=== PATIENT | female | born 1955 | race African-American/Black ===

== ENCOUNTER 2017-09-04 18:25 | Emergency (ER) | payer OTHER, SELFPAY ==
--- NOTE | 2017-09-04 18:33 | ED_ITS ---
HPI - Epistaxis <MARSHAL Stevenson - Last Filed: 09/04/17 22:13> General Chief complaint: Nasal Problem Stated complaint: Nose Bleed Time Seen by Provider: 09/04/17 18:33 History of Present Illness HPI Narrative: 61-year-old female with history of renal failure here for complaint of right-sided bloody nose that started earlier today. She was at dialysis and she accidentally bumped her nose while she was trying to move some of the tubing while she was at dialysis starting a nosebleed. She states that she had similar symptoms 1 week ago and was treated at ENT in which they cauterized a vessel in her right nares to stop the bleed. She denies being on any blood thinners. She denies any other symptoms. MD complaint: epistaxis Related Data Previous Rx's Medication Instructions Recorded oxycodone 5 mg PO Q6H PRN #10 cap 09/04/17 Allergies Allergy/AdvReac Type Severity Reaction Status Date / Time amiodarone Allergy Verified 09/04/17 21:16 amlodipine Allergy Verified 09/04/17 21:16 atenolol Allergy Verified 09/04/17 21:16 Review of Systems <MARSHAL Stevenson - Last Filed: 09/04/17 22:13> Constitutional Denies chills, Denies fever(s), Denies lethargy and Denies weakness Eyes Denies change in vision, Denies eye discharge, Denies irritation and Denies loss of vision ENT Ears, Nose, Mouth, and Throat: Reports epistaxis Cardiovascular Denies chest pain, Denies irregular heart rhythm, Denies lightheadedness, Denies palpitations, Denies dyspnea, Denies dyspnea on exertion and Denies orthopnea Respiratory Denies cough, Denies dyspnea, Denies dyspnea on exertion and Denies wheezing Gastrointestinal Gastrointestinal: Denies abdominal pain, Denies change in bowel habits, Denies diarrhea, Denies nausea and Denies vomiting Genitourinary Denies hematuria, Denies flank pain, Denies urinary incontinence and Denies urinary urgency Musculoskeletal Denies back pain, Denies muscle weakness, Denies numbness and Denies tingling Integumentary/Breasts Denies pruritus, Denies erythema, Denies rash and Denies wounds Neurologic Denies confusion, Denies loss of vision, Denies numbness, Denies tingling and Denies weakness Psychiatric Denies anxiety, Denies confusion, Denies depression, Denies homicidal ideation and Denies suicidal ideation Endocrine Denies palpitations Hematologic/Lymphatic Denies easy bruising Allergic/Immunologic Denies wheezing Exam <MARSHAL Stevenson - Last Filed: 09/04/17 22:13> Initial Vital Signs Initial Vital Signs: Vital Signs Pulse Rate 67 09/04/17 19:17 Respiratory Rate 24 09/04/17 19:17 Blood Pressure 159/97 H 09/04/17 19:17 Pulse Oximetry 97 09/04/17 19:17 Const General: cooperative and well developed Nutritional Appearance: well nourished Orientation: alert, awake, oriented x3 and not confused HENMT Nose: external nose normal and epistaxis Mouth: oral mucosae normal and moist mucous membranes Eyes Conjunctivae: conjunctivae normal Sclera: sclerae normal Pupils: PERRL EOM: EOM intact bilaterally Neck Neck: normal visual inspection Resp Effort & Inspection: normal respiratory effort, able to speak in complete sentences, no respiratory distress and no use of accessory muscles Auscultation: clear to auscultation bilaterally, no rales, no rhonchi and no wheezes Cardio Rate: regular rate Rhythm: regular rhythm Heart Sounds: no click, no gallops, no murmurs and no rubs Pulses: normal peripheral pulses Skin General: no rashes or lesions noted, No jaundice and No petechiae <Oskar Clifford MD - Last Filed: 09/05/17 05:55> Initial Vital Signs Initial Vital Signs: Vital Signs Pulse Rate 67 09/04/17 19:17 Respiratory Rate 24 09/04/17 19:17 Blood Pressure 159/97 H 09/04/17 19:17 Pulse Oximetry 97 09/04/17 19:17 Course <MARSHAL Stevenson - Last Filed: 09/04/17 22:13> Orders Ordered: Discontinued Medications Hydromorphone HCl (Dilaudid) 1 mg IM NOW ONE Stop: 09/04/17 20:19 Last Admin: 09/04/17 20:41 Dose: Hydromorphone HCl (Dilaudid) 0.5 mg IV NOW ONE Stop: 09/04/17 20:22 Last Admin: 09/04/17 20:27 Dose: 0.5 mg Vital Signs - 8 hr 09/04/17 19:17 09/04/17 21:25 Temperature 98.0 F Pulse Rate 67 79 Respiratory Rate 24 17 Blood Pressure 161/93 H Blood Pressure [Right Arm] 159/97 H Pulse Oximetry 97 93 <Oskar Clifford MD - Last Filed: 09/05/17 05:55> Orders Ordered: Discontinued Medications Hydromorphone HCl (Dilaudid) 1 mg IM NOW ONE Stop: 09/04/17 20:19 Last Admin: 09/04/17 20:41 Dose: Hydromorphone HCl (Dilaudid) 0.5 mg IV NOW ONE Stop: 09/04/17 20:22 Last Admin: 09/04/17 20:27 Dose: 0.5 mg Vital Signs - 8 hr 09/04/17 19:17 09/04/17 21:25 Temperature 98.0 F Pulse Rate 67 79 Respiratory Rate 24 17 Blood Pressure 161/93 H Blood Pressure [Right Arm] 159/97 H Pulse Oximetry 97 93 MDM - Epistaxis <MARSHAL Stevenson - Last Filed: 09/04/17 22:13> Lab Data Result diagrams: 09/04/17 19:32 09/04/17 19:32 Lab Results 09/04/17 09/04/17 09/04/17 Range/Units 19:32 19:32 19:32 WBC 5.0 (4.5-11.0) X10^3/uL RBC 2.93 L (4.0-5.2) X10^6/uL Hgb 9.5 L (12.0-16.0) g/dL Hct 28.4 L (36-46) % MCV 96.9 (80-100) fL MCH 32.3 (26-34) PG MCHC 33.3 (30-36) % RDW 17.6 H (11.6-14.8) % Plt Count 104 L (150-400) X10^3/uL Neut % (Auto) 67.9 (50-75) % Lymph % (Auto) 19.6 L (25-40) % Nelson % (Auto) 10.0 (3-14) % Eos % (Auto) 1.5 L (2-4) % Baso % (Auto) 1.0 (0-2) % Neut # (Auto) 3400 (0912-3104) /uL PT 13.3 H (10.1-12.7) SECONDS INR 1.2 (0.9-1.3) Sodium 140 (137-145) mmol/L Potassium 3.9 (3.4-5.1) mmol/L Chloride 95 L (98-107) mmol/L Carbon Dioxide 25 (22-32) mmol/L BUN 33 H (7-17) mg/dL Creatinine 3.40 H (0.52-1.04) mg/dL Estimated GFR 13.7 L (>60) mL/min BUN/Creatinine Ratio 9.7 (6-22) Glucose 101 (80-110) mg/dL Calcium 8.2 L (8.4-10.2) mg/dL Total Bilirubin 1.1 (0.2-1.3) mg/dL AST 19 (14-36) IU/L ALT 25 (9-52) IU/L Alkaline Phosphatase 109 (38-126) U/L Total Protein 7.3 (6.3-8.2) g/dL Albumin 4.4 (3.5-5.0) g/dL Globulin 2.9 (1.7-4.1) g/dL Albumin/Globulin Ratio 1.5 (1.0-2.8) MDM Narrative Medical decision making narrative: Right sided epistaxis was unable to determine whether was posterior or anterior. Rhino rocket was inserted to the right nares and was inflated. Shortly afterwards epistaxis stopped. She does report some discomfort to the right nares area. She was given IV Dilaudid. P.o. hydrocodone is prescribed for discomfort. She is to follow up with ENT in the next few days for re-evaluation. For any worsening symptoms return to the emergency room. She is instructed not to blow her nose. <Oskar Clifford MD - Last Filed: 09/05/17 05:55> Lab Data Lab Results 09/04/17 09/04/17 09/04/17 Range/Units 19:32 19:32 19:32 WBC 5.0 (4.5-11.0) X10^3/uL RBC 2.93 L (4.0-5.2) X10^6/uL Hgb 9.5 L (12.0-16.0) g/dL Hct 28.4 L (36-46) % MCV 96.9 (80-100) fL MCH 32.3 (26-34) PG MCHC 33.3 (30-36) % RDW 17.6 H (11.6-14.8) % Plt Count 104 L (150-400) X10^3/uL Neut % (Auto) 67.9 (50-75) % Lymph % (Auto) 19.6 L (25-40) % Nelson % (Auto) 10.0 (3-14) % Eos % (Auto) 1.5 L (2-4) % Baso % (Auto) 1.0 (0-2) % Neut # (Auto) 3400 (3668-0505) /uL PT 13.3 H (10.1-12.7) SECONDS INR 1.2 (0.9-1.3) Sodium 140 (137-145) mmol/L Potassium 3.9 (3.4-5.1) mmol/L Chloride 95 L (98-107) mmol/L Carbon Dioxide 25 (22-32) mmol/L BUN 33 H (7-17) mg/dL Creatinine 3.40 H (0.52-1.04) mg/dL Estimated GFR 13.7 L (>60) mL/min BUN/Creatinine Ratio 9.7 (6-22) Glucose 101 (80-110) mg/dL Calcium 8.2 L (8.4-10.2) mg/dL Total Bilirubin 1.1 (0.2-1.3) mg/dL AST 19 (14-36) IU/L ALT 25 (9-52) IU/L Alkaline Phosphatase 109 (38-126) U/L Total Protein 7.3 (6.3-8.2) g/dL Albumin 4.4 (3.5-5.0) g/dL Globulin 2.9 (1.7-4.1) g/dL Albumin/Globulin Ratio 1.5 (1.0-2.8) Discharge Plan Departure Patient Disposition: Home, Self-Care Clinical Impression: Epistaxis Discharge Date/Time: 09/04/17 21:20 Interventions: ED Discharge Assessment Last Done: 09/04/17 21:25 Instructions: DI for Nosebleed Activity Restrictions/Additional Instructions: Laboratory results indicate slightly low platelets most likely due to dialysis and renal failure. Rhino rocket was inserted into the right nostril and inflated to stop the bleeding. Follow up with ENT in approximately 3 days. Hydrocodone is prescribed to help with discomfort use as directed. Follow up with her primary care provider. Return emergency room for any worsening symptoms. Do not blow his nose as to not dislodge the clot. Prescriptions: New oxycodone 5 mg capsule 5 mg PO Q6H PRN (Reason: pain) Qty: 10 RF: 0 Referrals: [facility] [Provider Group] <Oskar Clifford MD - Last Filed: 09/05/17 05:55> Cosign ED Attending Beronica Attestation: I was immediately available in the department for consultation. Documentation has been reviewed. I agree with assessment and plan.
[2017-09-04 19:17] VITALS: BP 159/97; PULSE 67; RESP 24; O2SAT 97
[2017-09-04 19:43] LABS: Add Manual Diff / Slide Review NO; Eosinophils Percent Auto 1.5 % (2-4); Hematocrit 28.4 % (36-46); Hemoglobin 9.5 g/dL (12.0-16.0); Lymphocytes Percent Auto 19.6 % (25-40); Mean Corpuscular HGB Conc 33.3 % (30-36); Mean Corpuscular Hemoglobin 32.3 PG (26-34); Mean Corpuscular Volume 96.9 fL (80-100); Neutrophils Absolute Auto 3400 /uL (3000-5900); Neutrophils Percent Auto 67.9 % (50-75); Platelet Count 104 X10^3/uL (150-400); Red Blood Cell Count 2.93 X10^6/uL (4.0-5.2); Red Cell Distribution Width 17.6 % (11.6-14.8)
[2017-09-04 19:47] LABS: INR 1.2 (0.9-1.3); Prothrombin Time 13.3 SECONDS (10.1-12.7)
[2017-09-04 20:00] LABS: Alanine Aminotransferase 25 IU/L (9-52); Albumin 4.4 g/dL (3.5-5.0); Albumin Globulin Ratio 1.5 (1.0-2.8); Alkaline Phosphatase 109 U/L (38-126); Aspartate Aminotransferase 19 IU/L (14-36); BUN Creatinine Ratio 9.7 (6-22); Bilirubin Total 1.1 mg/dL (0.2-1.3); Blood Urea Nitrogen 33 mg/dL (7-17); Calcium 8.2 mg/dL (8.4-10.2); Carbon Dioxide 25 mmol/L (22-32); Chloride 95 mmol/L (98-107); Estimated Glomerular Filt Rate 13.7 mL/min (>60); Globulin 2.9 g/dL (1.7-4.1); Glucose 101 mg/dL (80-110); HEMOLYSIS < 15 (0-50); Potassium 3.9 mmol/L (3.4-5.1); Sodium 140 mmol/L (137-145); Total Protein 7.3 g/dL (6.3-8.2)
[2017-09-04] MEDS: HYDROMORPHONE 0.5 MG INJ IV (20:27)
--- NOTE | 2017-09-04 21:24 | PC.NURSE ---
Pt had recent cauterization of the right nare 6 days ago. On dialysis. Dialysis performed today. Finished prior to coming to ED.
[2017-09-04 21:25] VITALS: BP 161/93; PULSE 79; RESP 17; TEMP 36.7; O2SAT 93
== END 2017-09-04 21:20 | disposition home or self-care (01) ==
PROVIDERS: Emergency Provider Nurse Practitioner Family
DX: R04.0 Epistaxis (principal)
CPT/HCPCS: 30903; 80053; 85025; 85610; 96374; 99282; 99284; J1170